=== PATIENT | male | born 1965 | race Caucasian/White ===

== ENCOUNTER 2016-04-16 10:45 | Emergency (ER) | payer MEDICAID ==
[~2016-04-16] VITALS: Wt 64.5 kg
[~2016-04-16 10:45] MED LIST: BEN50 PO; LEVO750T25 PO; PRED50TA PO
[2016-04-16] MEDS ORDERED: FAMOTIDINE 20 MG INJ IV STA (11:34)
[2016-04-16] MEDS ORDERED: ONDANSETRON 4 MG INJ IV STA (11:34)
[2016-04-16 12:05] LABS: ADD UMIC YES; URINE BILIRUBIN (Dip) NEGATIVE (NEGATIVE); URINE BLOOD (Dip) TRACE (NEGATIVE); URINE COLOR YELLOW (YELLOW); URINE GLUCOSE (Dip) NEGATIVE (NEGATIVE); URINE KETONES (Dip) TRACE (NEGATIVE); URINE LEUKOCYTE ESTERASE (Dip) NEGATIVE (NEGATIVE); URINE NITRITE (Dip) NEGATIVE (NEGATIVE); URINE TOTAL PROTEIN (Dip) TRACE (NEGATIVE); URINE UROBILINOGEN (Dip) 2.0 E.U./dL (0.1-1.0)
[2016-04-16 12:11] LABS: ALBUMIN 4.5 g/dl (3.3-4.9)
[2016-04-16 12:12] LABS: INR 0.93; PROTIME 12.5 Sec (12.2-14.2)
[2016-04-16 12:13] LABS: BACTERIA,URINE MODERATE; PARTIAL THROMBOPLASTIN TIME 25.5 Sec (25.0-35.0); URINE RBCS 0-2 /HPF (0)
[2016-04-16 12:14] LABS: ALBUMIN/GLOBULIN RATIO 1.32; BILIRUBIN,INDIRECT 0.5 mg/dl (0-1.1); BILIRUBIN,TOTAL 0.5 mg/dl (0.2-1.3); CREATININE 0.71 mg/dl (0.61-1.24); TOTAL PROTEIN 7.9 g/dl (6.1-8.1)
--- NOTE | 2016-04-16 12:20 | RADRPT ---
PROCEDURE: XR Chest. CLINICAL INDICATION: chest pain TECHNIQUE: Single frontal view of the chest was obtained COMPARISON: 05/19/15 FINDINGS: The heart and mediastinum are within normal limits. There is a small right lower lobe calcified granuloma. The lungs are otherwise clear. There is no pleural effusion or pneumothorax. RPTAT: AA IMPRESSION: No acute disease. Unchanged small right lower lobe calcified granuloma. .Gerardo Bailey MD, MD Date Time Electronically viewed and signed by .Gerardo Bailey MD, on 04/16/2016 12:20 .S/
[2016-04-16 12:48] LABS: BASOPHILS % 0.3 % (0.0-2.0); EOSINOPHILS % 0.3 % (0.0-7.0); HEMATOCRIT 46.7 % (42.0-52.0); HEMOGLOBIN 16.4 g/dl (14.0-18.0); LYMPHOCYTES # 1.8 10^3/ul (0.8-2.9); LYMPHOCYTES % 15.3 % (15.0-51.0); MEAN CORPUSCULAR HEMOGLOBIN 31.2 pg (29.0-33.0); MEAN CORPUSCULAR VOLUME 89.2 fl (82.0-101.0); MEAN PLATELET VOLUME 8.8 fl (7.4-10.4); MONOCYTE # 0.7 10^3/ul (0.3-0.9); MONOCYTES % 6.4 % (0.0-11.0); NEUTROPHIL # 8.9 10^3/ul (1.6-7.5); NEUTROPHILS % 77.7 % (39.0-77.0); PLATELET COUNT 193 10^3/UL (140-440); RED BLOOD COUNT 5.24 10^6/ul (4.70-6.10); RED CELL DISTRIBUTION WIDTH 13.2 % (11.5-14.5); UNCORRECTED WBC 11.4 10^3/ul (4.8-10.8); WHITE BLOOD COUNT 11.4 10^3/ul (4.8-10.8)
[2016-04-16 12:50] LABS: CONDITION 1
[2016-04-16] MEDS ORDERED: ONDA8TAB14 PO (13:15)
[2016-04-16] MEDS ORDERED: FAMO-18 PO (13:15)
[2016-04-16] MEDS ORDERED: ACET500C5 PO (13:15)
--- NOTE | 2016-04-16 13:20 | ERD ---
ER Documentation Chief Complaint Date/Time DATE: 04/16/16 TIME: 13:17 Chief Complaint vomiting dark colored emesis this am, no coffee ground emesis or blk stool HPI This 51-year-old male complains of vomiting since this morning. There are other household members with similar symptoms at home. He denies fevers, diarrhea or lower abdominal pain. He has some mild epigastric pain. He noticed some blood in the vomitus today although is uncertain how much as he said 2 cups but also food. He states he vomited 3 times. ROS All systems reviewed and are negative except as per history of present illness. Medications Home Meds Active Scripts Acetaminophen* (Tylophen*) 500 Mg Capsule, 1 CAP PO Q6H Y for PAIN AND OR ELEVATED TEMP, #15 CAP Prov:CAPO MAGALLON MD 04/16/16 Famotidine* (Pepcid*) 20 Mg Tablet, 20 MG PO BID for 7 Days, #14 TAB Prov:CAPO MAGALLON MD 04/16/16 Ondansetron (Ondansetron Odt) 8 Mg Tab.rapdis, 8 MG PO Q6H Y for NAUSEA AND/OR VOMITING, #10 TAB Prov:CAPO MAGALLON MD 04/16/16 Prednisone* (Prednisone*) 50 Mg Tablet, 50 MG PO DAILY, #5 TAB Prov:DAVID FLAHERTY NP 10/05/15 Diphenhydramine Hcl* (Benadryl*) 50 Mg Cap, 50 MG PO Q6H Y for ITCHING/RASH, # 30 CAP Prov:DAVID FLAHERTY NP 10/05/15 Levofloxacin* (Levaquin*) 750 Mg Tablet, 750 MG PO DAILY for 5 Days, TAB Prov:JIMMIE GARG PA-C 05/29/15 Allergies Allergies: Coded Allergies: No Known Allergy (Unverified , 04/16/16) PMhx/Soc Medical and Surgical Hx: pt denies Medical Hx, pt denies Surgical Hx History of Surgery: No Anesthesia Reaction: No Hx Neurological Disorder: No Hx Respiratory Disorders: No Hx Cardiac Disorders: No Hx Psychiatric Problems: No Hx Miscellaneous Medical Probl: No Hx Alcohol Use: No Hx Substance Use: No Hx Tobacco Use: No Smoking Status: Never smoker Physical Exam Vitals Vital Signs Date Time Temp Pulse Resp B/P Pulse Ox O2 Delivery O2 Flow Rate FiO2 04/16/16 10:50 97.9 84 20 126/74 98 Physical Exam Const: [] Alert, [id number], no apparent distress. Head: Atraumatic Eyes: Normal Conjunctiva ENT: Normal External Ears, Nose and Mouth. Neck: Full range of motion..~ No meningismus. Resp: Clear to auscultation bilaterally Cardio: Regular rate and rhythm, no murmurs Abd: Soft, very mild epigastric tenderness. No tenderness at McBurney's point no Ferreira sign and no rebound., non distended. Normal bowel sounds Skin: No petechiae or rashes Back: No midline or flank tenderness Ext: No cyanosis, or edema Neur: Awake and alert Psych: Normal Mood and Affect Result Diagram: 04/16/16 1151 04/16/16 1151 Results 24 hrs Laboratory Tests Test 04/16/16 11:51 Activated Partial Thromboplast Time 25.5Sec Alanine Aminotransferase (ALT/SGPT) 58IU/L Albumin 4.5g/dl Albumin/Globulin Ratio 1.32 Alkaline Phosphatase 80IU/L Anion Gap 17 Aspartate Amino Transf (AST/SGOT) 44IU/L Basophils # 0.010^3/ul Basophils % 0.3% Blood Urea Nitrogen 23mg/dl Calcium Level 9.0mg/dl Carbon Dioxide Level 29mmol/L Chloride Level 100mmol/L Creatinine 0.71mg/dl Direct Bilirubin 0.00mg/dl Eosinophils # 0.010^3/ul Eosinophils % 0.3% Globulin 3.40g/dl Glucose Level 94mg/dl Hematocrit 46.7% Hemoglobin 16.4g/dl INR International Normalized Ratio 0.93 Indirect Bilirubin 0.5mg/dl Lipase 56U/L Lymphocytes # 1.810^3/ul Lymphocytes % 15.3% Mean Corpuscular Hemoglobin 31.2pg Mean Corpuscular Hemoglobin Concent 35.0g/dl Mean Corpuscular Volume 89.2fl Mean Platelet Volume 8.8fl Monocytes # 0.710^3/ul Monocytes % 6.4% Neutrophils # 8.910^3/ul Neutrophils % 77.7% Nucleated Red Blood Cells # 0.010^3/ul Nucleated Red Blood Cells % 0.0/100WBC Platelet Count 32587^3/UL Potassium Level 4.0mmol/L Prothrombin Time 12.5Sec Prothrombin Time Ratio 1.0 Red Blood Count 5.2410^6/ul Red Cell Distribution Width 13.2% Sodium Level 142mmol/L Total Bilirubin 0.5mg/dl Total Protein 7.9g/dl Urine Bacteria MODERATE Urine Bilirubin NEGATIVE Urine Clarity CLEAR Urine Color YELLOW Urine Epithelial Cells FEW Urine Glucose NEGATIVE% Urine Hemoglobin TRACE Urine Ketones TRACE Urine Leukocyte Esterase NEGATIVE Urine Microscopic RBC 0-2/HPF Urine Microscopic WBC NONE SEEN/HPF Urine Nitrite NEGATIVE Urine Specific [place] 1.020 Urine Total Protein TRACE Urine Urobilinogen 2.0 E.U./dL Urine pH 7.5 White Blood Count 11.410^3/ul Current Medications Medications (Trade) Dose Ordered Sig/Esmer Route PRN Reason Start Time Stop Time Status Last Admin Dose Admin Ondansetron HCl (Zofran Inj) 4 mg ONCE STAT IV 04/16/16 11:34 04/16/16 11:37 DC 04/16/16 11:57 Famotidine (Pepcid Iv) 20 mg ONCE STAT IV 04/16/16 11:34 04/16/16 11:37 DC 04/16/16 11:57 Procedures/MDM Chest X-ray 1V Interpreted by me: Soft Tissue: No acute abnormalities Bones: No acute abnormalities Mediastinum/Cardiac Silhouette/Lungs: [No acute abnormalities]. Impression- no acute findings on chest x-ray CBC shows a white blood cell count of 11, otherwise normal. CMP is normal except for slightly elevated BUN. Urine is negative for leukocytes, nitrites, blood, glucose. Patient was given Zofran 4 mg IV, and Pepcid 20 mg IV. Patient had a benign abdomen on serial exam patient had no vomiting or nausea throughout the ED course. Patient presents with vomiting with possible blood of uncertain etiology for 1 day. Given household contacts with similar symptoms he likely has gastroenteritis. There is no signs or symptoms of actively vomiting blood or hematemesis. Patient safe for discharge given his asymptomatic state currently. There is no signs of Boerhaave syndrome, active bleeding, acute abdomen, acute coronary syndrome, PE, pneumonia, sepsis, additional causes of vomiting. Patient is advised to recheck for new or worsening symptoms with primary care doctor this week Departure Diagnosis: Primary Impression: Vomiting Vomiting type: unspecified Vomiting Intractability: non-intractable Nausea presence: with nausea Qualified Code: R11.2 - Non-intractable vomiting with nausea, unspecified vomiting type Condition: Stable Patient Instructions: Abdominal Pain, Vomiting (6Y-Adult) Additional Instructions: Examines normal hoy. Cheque otro vez con ramos doctor primario en el proximo adams or regresa para mas o nueva simptomas. Probablamente un virus que dura 2-4 adams. cheque otro tavon el proximo reese para mas simptomas- vomito, dolor, [place], problemas con respirando, o con ramos doctor primario. CAPO MAGALLON MD Apr 16, 2016 13:20
[2016-04-16 13:55] VITALS: BP 110/68; PULSE 61; RESP 16; TEMP 98.1
== END 2016-04-16 13:55 | disposition home or self-care (01) ==
LOC: FTE 10:45
DX: R11.2 Nausea with vomiting, unspecified (principal); R07.9 Chest pain, unspecified
CPT/HCPCS: 36415; 71010; 80053; 81001; 83690; 85025; 85610; 85730; 96374; 96375; J2405; Z7502; Z7610; 81003

== ENCOUNTER 2018-03-10 19:04 | Emergency (ER) | END 2018-03-10 21:25 | disposition home or self-care (01) ==